=== PATIENT | male | born 1970 | race Hispanic/Latino ===

== ENCOUNTER 2022-03-22 13:20 | Emergency (ER) | payer OTHER ==
[~2022-03-22] VITALS: Ht 167.6 cm; Wt 77.1 kg
[2022-03-22 13:23] VITALS: BP 122/74; TEMP 99.5
[2022-03-22 14:18] LABS: PLATELET COUNT 201 K/uL (142-355)
[2022-03-22 14:26] LABS: POTASSIUM 4.1 mmol/L (3.6-5.2)
== END 2022-03-22 15:40 | disposition home or self-care (01) ==
LOC: ED 13:20
PROVIDERS: Family Medicine
DX: G51.0 Bell's palsy (principal)
CPT/HCPCS: 80053; 80307; 81002; 85027; 99282